=== PATIENT | female | born 1955 | race Two or more races ===

== ENCOUNTER 2021-09-23 06:58 | Day surgery (SDC) | payer OTHER ==
[~2021-09-23 06:58] MED LIST: CLONAZEPAM2 M1 PO; COZAAR25 MG PO; GLIMEPIRIDE2 MG; JANUMET XR 1001 EACH PO; OFEV150 MG PO; PAMELOR50 MG PO
== END 2021-09-23 16:25 | disposition home or self-care (01) ==
LOC: CIR.AMB 06:58
PROVIDERS: ATTEND Specialist
DX: C44.519 Basal cell carcinoma of skin of other part of trunk (principal); Z20.822 Contact with and (suspected) exposure to COVID-19

== ENCOUNTER 2025-03-27 15:47 | Emergency (ER) | payer OTHER ==
[~2025-03-27] VITALS: Ht 157.5 cm; Wt 81.6 kg
[2025-03-27] MEDS ORDERED: TOPROL XL25 M1 PO (16:48)
[2025-03-27 16:50] VITALS: BP 152/73; O2SAT 99
[2025-03-27] MEDS ORDERED: FAMOTIDINE/PF 20 MG/2 ML VIAL ONE (17:44)
[2025-03-27] MEDS ORDERED: ONDANSETRON HCL 2 MG/ML VIAL ONE (17:44)
[2025-03-27] MEDS ORDERED: ONDANSETRON HCL 2 MG/ML VIAL IV ONE (17:45)
[2025-03-27] MEDS ORDERED: FAMOtidine 10 MG/ML (4ML VIAL) IV ONE (17:45)
[2025-03-27] MEDS ORDERED: 0.9 % SODIUM CHLORIDE 1,000 ML IV ONE (17:45)
[2025-03-27 18:54] LABS: BASO % 0.7 % (0.1-1.2); EOS # 0.08 (0.04-0.54); EOS % 1.1 % (0.7-7.0); LYMPH # 2.17 (1.18-3.74); LYMPH % 28.9 % (19.3-53.1); MEAN PLATELET VOLUME 9.70 fl (9.4-12.4); MONO # 0.53 (0.24-0.82); MONO % 7.1 % (4.7-12.5); NEUT # 4.67 (1.56-6.13); NEUT % 62.1 % (34.0-71.1); RED CELL DISTRIBUTION WIDTH 12.6 % (11.6-14.4)
[2025-03-27 19:26] LABS: ALT/SGPT 39.0 U/L (12-78); AST/SGOT 36.0 U/L (15-37); BILIRUBIN TOTAL 0.95 mg/dL (0.3-1.2); BUN CREA RATIO 11.0 (7.0-25.0); CREATININE SERUM 0.9 mg/dL (0.55-1.02); GFR 61.72; GLOBULINA 4.0 G/DL (2.4-3.5); GLUCOSE FASTING 136.0 mg/dL (65-100); OSMOLALITY SERUM 286.0 MOSM/KG (275-295)
[2025-03-27 19:41] LABS: COVID-19 AG NEGATIVE (NEGATIVE)
[2025-03-27 22:07] LABS: URINE APPEARANCE Clear; URINE BILIRRUBIN Negative (NEGATIVE); URINE BLOOD Small; URINE COLOR Yellow; URINE GLUCOSE Negative (NEGATIVE); URINE KETONE Trace (NEGATIVE); URINE LEUKOCYTE Trace; URINE NITRATE Negative; URINE PROTEIN Trace (NEGATIVE); URINE UROBILINOGEN 1.0 E.U./dl
[2025-03-27 22:10] LABS: URINE BACTERIA 110.3 uL (0.0-1933); URINE EPITHELIAL CELLS 9.5 uL (0.0-38.8); URINE RBC 62.0 uL (0.0-20.8); URINE WBC 8.7 uL (0.0-23.2)
[2025-03-27 22:11] LABS: URINE CAST 0.29 uL (0.0-1.40)
[2025-03-27] MEDS ORDERED: PEPCID AC20 MG PO (22:26)
[2025-03-27] MEDS ORDERED: BACTRIM DS TAB1 EACH PO (22:26)
== END 2025-03-27 22:32 | disposition home or self-care (01) ==
LOC: ER 16:44
PROVIDERS: General Practice
DX: N39.0 Urinary tract infection, site not specified (principal); R53.81 Other malaise; Z20.822 Contact with and (suspected) exposure to COVID-19; E11.9 Type 2 diabetes mellitus without complications; Z79.84 Long term (current) use of oral hypoglycemic drugs; I10 Essential (primary) hypertension; M79.7 Fibromyalgia; Z88.8 Allergy status to other drugs, medicaments and biological substances; Z87.09 Personal history of other diseases of the respiratory system
CPT/HCPCS: 36415; 71046; 96365; 99283; J2405; J3490